=== PATIENT | male | born 1990 | race Caucasian/White ===

== ENCOUNTER 2017-05-01 15:37 | Emergency (ER) | payer SELFPAY ==
--- NOTE | 2017-05-01 16:10 | ED Physician Documentation ---
General Adult - HISTORIAN Historian: patient, other (law enforcement) - HPI Stated Complaint: "Fit for Confinement" Chief Complaint: General Adult Additional Information: pt here w/ law enforcement for FIT FOR CONFINEMENT exam. hx thc from [place] 2 days ago and claims swallowed 1gm meth approx 1330 hrs. c/o being cold and tremors-room cool and no tremors seen on exam. vital signs WNL Onset: hours (1330) Timing: still present Severity: mild Further Comments: yes (PT ALERT COOPERATIVE NO APPARENT ACUTE DISTRESS) - ROS CONST: no problems EYES/ENT: none CVS/RESP: none. denies: chest pain, shortness of breath, cough GI/: none MS/SKIN/LYMPH: none - PAST HX Past History: none Surgeries/Procedures: none Allergies/Adverse Reactions: Allergies Allergy/AdvReac Type Severity Reaction Status Date / Time cillins Allergy Uncoded 05/01/17 15:47 Home Medications: Ambulatory Orders Medication Instructions Recorded NK [NK] 05/01/17 - SOCIAL HX Smoking History: cigarettes (2-3 cigs per day) Alcohol Use: rarely Drug Use: marijuana, methamphetamines - FAMILY HX Family History: No - VITAL SIGNS Vital Signs: Vital Signs Temp Pulse Resp BP Pulse Ox 98.1 F 105 H 18 139/92 99 05/01/17 15:38 05/01/17 15:38 05/01/17 15:38 05/01/17 15:38 05/01/17 15:38 - REVIEWED ASSESSMENTS Nursing Assessment Reviewed: Yes Vitals Reviewed: Yes General Adult Physical Exam - PHYSICAL EXAM GENERAL APPEARANCE: no distress EENT: eye inspection normal (pupils sl dilated appprox 5mm reactive) NECK: normal inspection, thyroid normal. No: carotid bruit RESPIRATORY: no resp distress, chest non-tender, breath sounds normal CVS: reg rate & rhythm, heart sounds normal (98-100bpm) ABDOMEN: soft, non-tender BACK: normal inspection, no CVA tenderness SKIN: warm/dry, normal color. No: cyanosis, diaphoresis, jaundice, mottled EXTREMITIES: non-tender, normal range of motion, no edema, other (DTR= 0-1 SYMM) NEURO: oriented X3, motor nml, sensation nml, mood/affect nml, cognition normal. No: depressed mood/affect, sensory/motor deficit, asymmetric reflexes Discharge Clincal Impression: MULTI SUBSTANCE ABUSE---, PT FIT FOR CONFINEMENT AT THIS TIME Referrals: Primary Doctor,No [Primary Care Provider] - 2 Days Comments: RELEASED TO LAW ENFORCEMENT Condition: Good Disposition: 01 HOME, SELF-CARE Decision to Admit: NO Decision Time: 16:16
[2017-05-01 16:15] VITALS: BP 130/72
== END 2017-05-01 16:10 | disposition home or self-care (01) ==
LOC: ED 15:37
DX: F19.10 Other psychoactive substance abuse, uncomplicated (principal); Z02.89 Encounter for other administrative examinations
CPT/HCPCS: 99282